=== PATIENT | female | born 1950 | race Caucasian/White ===

== ENCOUNTER 2018-01-22 13:45 | Emergency (ER) | payer OTHER, BC ==
[~2018-01-22] VITALS: Ht 167.6 cm; Wt 81.7 kg
[~2018-01-22 13:45] MED LIST: ALEVE220 MG PO; ALORA1 EAC1; AMBIEN 5 MG TABL5 M1 PO; ESTRADIOL 1 MG T1 M1 PO; FLEXERIL PO; FLORASTOR250 MG PO; MIRALAX17 GM PO; NAPROSYN500 MG PO; NORCO 5-325 TA1 EACH PO; OXYCODONE HCL 55 MG PO; PERCOCET 7.5-31 EACH PO; PERCOCET PO; ROXICODONE5 M2 PO; TOPROL XL25 MG PO; TYLENOL325 MG PO; VERTICALM25 MG PO
[2018-01-22] MEDS ORDERED: FLEXERIL PO (15:10)
== END 2018-01-22 15:27 | disposition home or self-care (01) ==
LOC: ER 13:45
DX: S16.1XXA Strain of muscle, fascia and tendon at neck level, initial encounter (principal); S39.012A Strain of muscle, fascia and tendon of lower back, initial encounter; Z90.710 Acquired absence of both cervix and uterus; Z90.49 Acquired absence of other specified parts of digestive tract; Z87.891 Personal history of nicotine dependence; V89.2XXA Person injured in unspecified motor-vehicle accident, traffic, initial encounter; Y93.89 Activity, other specified; Y92.89 Other specified places as the place of occurrence of the external cause; Y99.8 Other external cause status

== ENCOUNTER 2018-04-09 12:58 | Emergency (ER) | payer OTHER, BC ==
[~2018-04-09] VITALS: Ht 167.6 cm; Wt 81.7 kg
--- NOTE | ~2018-04-09 | EKG ---
[address] [address] ELECTROCARDIOGRAM REPORT Name: CEM EDGAR [id number] Admission: 04/09/18 Attend Phys: Discharge: 04/09/18 Date of : 46 Report #: [id number] THIS REPORT FOR: //name// [facility] ED Test Date: 2018-04-09 Test Time: 12:58:05 Pat Name: CEM EDGAR Department: Room: Gender: F Cafeteria Monitor: Doris DEAN : 1950 Requested By: Kiara Nation Order Number: [id number] MD: Archie Richards Measurements Intervals [place] Rate: 166 P: 0 VT: 212 QRS: 49 QRSD: 90 T: -73 QT: 273 QTc: 454 Interpretive Statements Supraventricular tachycardia Repolarization abnormality, prob rate related Baseline wander in lead(s) II,III,aVR,aVL,aVF,V2,V3,V4,V5,V6 Compared to ECG 12/31/2014 00:57:36 Early repolarization now present Sinus rhythm no longer present Myocardial infarct finding no longer present Electronically Signed On 04-10-2018 21:18:15 CDT by Archie Richards [email or web address] <ELECTRONICALLY SIGNED> By: Archie Richards MD 04/10/18 2118 1258 Archie Richards MD /EPI
[2018-04-09 13:20] LABS: ABSOLUTE NEUTROPHILS 6.5 thou/uL (1.4-8.2); BASOPHILS 0.7 % (0.0-2.0); EOSINOPHILS 2.6 % (0.0-3.0); HEMATOCRIT 44.2 % (37.0-47.0); HEMOGLOBIN 14.8 gm/dL (12.0-15.0); LYMPHOCYTES 26.2 % (24.0-44.0); MCH 29.5 pg (26.0-34.0); MCHC 33.5 g/dL (28.0-37.0); MCV 87.8 fL (80.0-100.0); MONOCYTES 8.1 % (1.0-8.0); PLATELET COUNT 252 thou/uL (150-400); POLYS 62.4 % (36.0-66.0); RBC 5.03 mil/uL (4.20-5.00); RDW 13.7 % (10.5-14.5); WBC 10.4 thou/uL (4.0-11.0)
[2018-04-09] MEDS ORDERED: TOPROL XL50 MG PO (13:21)
[2018-04-09 13:23] LABS: CALCIUM 9.2 mg/dL (8.5-10.1); CREATININE 1.1 mg/dL (0.6-1.0); POTASSIUM 3.6 mmol/L (3.5-5.1)
== END 2018-04-09 13:56 | disposition home or self-care (01) ==
LOC: ER 12:58
PROVIDERS: Emergency Medicine
DX: I47.1 Supraventricular tachycardia (principal); M19.90 Unspecified osteoarthritis, unspecified site; Z90.49 Acquired absence of other specified parts of digestive tract; Z90.710 Acquired absence of both cervix and uterus; Z88.8 Allergy status to other drugs, medicaments and biological substances

== ENCOUNTER → 2019-09-22 | Outpatient (CLI) | payer OTHER, BC ==
[~2019-09-22] VITALS: Ht 167.6 cm; Wt 81.6 kg
[~2019-09-22] MED LIST changes: +TOPROL XL50 MG PO
[2019-09-22 07:33] LABS: HEMATOCRIT 45.5 % (37.0-47.0); MCH 29.5 pg (26.0-34.0); MCV 89.5 fL (80.0-100.0); RBC 5.08 mil/uL (4.20-5.00); WBC 8.6 thou/uL (4.0-11.0)
[2019-09-22 07:34] VITALS: BP 151/67
[2019-09-22 07:41] LABS: CALCIUM 10.2 mg/dL (8.5-10.1); CREATININE 0.9 mg/dL (0.6-1.0); POTASSIUM 4.3 mmol/L (3.5-5.1)
[2019-09-22 09:48] VITALS: BP 145/88
[2019-09-22 10:21] VITALS: BP 167/88
== END | disposition home or self-care (01) ==
LOC: CATH 08-18 15:27
PROVIDERS: Nuclear Medicine Nuclear Cardiology
DX: I87.2 Venous insufficiency (chronic) (peripheral) (principal); I87.1 Compression of vein; I87.323 Chronic venous hypertension (idiopathic) with inflammation of bilateral lower extremity; M79.89 Other specified soft tissue disorders; I10 Essential (primary) hypertension; M19.90 Unspecified osteoarthritis, unspecified site; Z90.49 Acquired absence of other specified parts of digestive tract; Z90.710 Acquired absence of both cervix and uterus; Z98.890 Other specified postprocedural states; Z79.899 Other long term (current) drug therapy; Z87.891 Personal history of nicotine dependence; Z96.652 Presence of left artificial knee joint

== ENCOUNTER → 2019-11-03 | Outpatient (CLI) | payer OTHER, BC ==
[~2019-11-03] VITALS: Ht 167.6 cm; Wt 81.6 kg
[2019-11-03 07:40] VITALS: BP 147/77
== END | disposition home or self-care (01) ==
LOC: CATH 07:13
DX: I87.2 Venous insufficiency (chronic) (peripheral) (principal); I87.322 Chronic venous hypertension (idiopathic) with inflammation of left lower extremity; M79.605 Pain in left leg; R22.42 Localized swelling, mass and lump, left lower limb; I10 Essential (primary) hypertension; I73.9 Peripheral vascular disease, unspecified; M19.90 Unspecified osteoarthritis, unspecified site; Z98.890 Other specified postprocedural states; Z79.899 Other long term (current) drug therapy; Z87.891 Personal history of nicotine dependence; Z90.49 Acquired absence of other specified parts of digestive tract; Z90.710 Acquired absence of both cervix and uterus; Z82.49 Family history of ischemic heart disease and other diseases of the circulatory system; Z96.652 Presence of left artificial knee joint

== ENCOUNTER → 2020-08-21 | Outpatient (CLI) | payer OTHER, BC ==
[~2020-08-21] MED LIST changes: +LORCET 5-325 M1 EACH PO; +MULTI VITAMIN1 EACH PO; +VITAMIN D325 MC2 PO
== END ==
LOC: LAB 07:43
PROVIDERS: ATTEND Orthopaedic Surgery
DX: Z01.812 Encounter for preprocedural laboratory examination (principal); Z20.828 Contact with and (suspected) exposure to other viral communicable diseases

== ENCOUNTER 2020-08-26 11:11 | Inpatient (IN) | payer OTHER, BC ==
[2020-08-09 09:23] LABS: HEMATOCRIT 43.8 % (37.0-47.0); HEMOGLOBIN 14.2 gm/dL (12.0-15.0); MCH 29.1 pg (26.0-34.0); MCHC 32.5 g/dL (28.0-37.0); MCV 89.6 fL (80.0-100.0); RBC 4.89 mil/uL (4.20-5.00); RDW 13.6 % (10.5-14.5); WBC 8.3 thou/uL (4.0-11.0)
[2020-08-09 09:32] LABS: URINE BILIRUBIN NEGATIVE (Negative); URINE BLOOD TRACE (Negative); URINE CLARITY CLEAR; URINE COLOR YELLOW; URINE GLUCOSE-RANDOM* NEGATIVE (Negative); URINE KETONES NEGATIVE (Negative); URINE LEUKOCYTES-REFLEX NEGATIVE (Negative); URINE NITRITE-REFLEX NEGATIVE (Negative); URINE PROTEIN (DIPSTICK) NEGATIVE (Negative); URINE SPECIFIC GRAVITY 1.025 (1.005-1.035); URINE UROBILINOGEN 0.2 E.U./dl (0.2-1.0)
[2020-08-09 09:34] LABS: ALBUMIN 3.8 g/dL (3.4-5.0); CALCIUM 9.3 mg/dL (8.5-10.1); CREATININE 0.8 mg/dL (0.6-1.0); POTASSIUM 4.1 mmol/L (3.5-5.1)
--- NOTE | 2020-08-09 12:35 | EKG ---
[facility] [place] [address] ELECTROCARDIOGRAM REPORT Name: TALACEM POLK Room #: PRE [facility] [place].#: [id number] Admission: Attend Phys: Shaun Ahumada MD Discharge: Date of : 46 Report #: [id number] THIS REPORT FOR: cc: FAM - Family physician unknown FAM - Family physician unknown Hector Cerrato MD [facility] ~ THIS REPORT FOR: //name// [facility] Test Date: 2020-08-09 Test Time: 09:12:19 Pat Name: CEM EDGAR Department: Room: Gender: F Surveyor'S Assistant: CAROLINE MERRITT : 1950 Requested By: Shaun Ahumada Order Number: [id number] MD: Hector Cerrato Measurements Intervals [place] Rate: 62 P: 7 NV: 185 QRS: 7 QRSD: 95 T: 20 QT: 406 QTc: 413 Interpretive Statements Sinus rhythm Poor R wave progression Compared to ECG 06/24/2018 07:05:54 No significant changes found Electronically Signed On 08-09-2020 12:35:24 CDT by Hector Cerrato [email or web address] <ELECTRONICALLY SIGNED> By: Hector Cerrato MD, FAC 08/09/20 1235 1 09 Hector Cerrato MD, [facility] /EPI
[~2020-08-26] VITALS: Ht 167.6 cm; Wt 81.6 kg
[2020-08-26] VITALS (7 sets, daily range): BP systolic 121–158; BP diastolic 71–84
--- NOTE | ~2020-08-26 | O ---
[facility] [place] [address] OPERATIVE REPORT Name: CEM EDGAR Room #: 444-P [facility] M..#: [id number] Admission: 08/26/20 Attend Phys: Shaun Ahumada MD Discharge: Date of : 46 Report #: [id number] THIS REPORT FOR: cc: DHEERAJ - Family physician unknown FAM - Family physician unknown Shaun Ahumada MD ~ CC: DHEERAJ unknown Shaun Ahumada DATE OF SERVICE: 08/26/2020 PREOPERATIVE DIAGNOSIS: Left knee osteoarthritis. POSTOPERATIVE DIAGNOSIS: Left knee osteoarthritis. PROCEDURE: Left total knee arthroplasty using Navio robotic laboratory chemical assistant. SURGEON: Shaun Ahumada MD. SPACE SYSTEMS OPERATIONS CRAFTSMAN: Vane Turner PA-C. INDICATIONS FOR SPACE SYSTEMS OPERATIONS CRAFTSMAN: Throughout the case, extensive retraction and manipulation of the knee was required. This was afforded to me by my laboratory chemical assistant. ANESTHESIA: LMA with an adductor canal block. IMPLANTS: Doty and Nephew size 5 Journey II BCS cobalt chrome femur, a size 4 tibia, size 11 polyethylene and a size 32 patella. TOURNIQUET TIME: 54 minutes. ESTIMATED BLOOD LOSS: 25 mL COMPLICATIONS: None. SPECIMENS: None. CONDITION UPON LEAVING THE OPERATING ROOM: Stable. INDICATIONS FOR PROCEDURE: The patient is a 70-year-old female with left knee osteoarthritis. She had failed conservative measures for this and after discussion with her, she elected for left total knee arthroplasty. DESCRIPTION OF PROCEDURE: Risks, benefits, alternatives, complications were discussed in detail with the patient including but not limited to risk of anesthesia, risk of damage to nerves, arteries, blood vessels, risk for [facility] [address] [place] [address] OPERATIVE REPORT Name: CEM EDGAR FELICITAS Room #: 444-P REG [facility] M.R.#: [id number] Admission: 08/26/20 Attend Phys: Shaun Ahumada MD Discharge: Date of : 46 Report #: [id number] infection, bleeding, risk for continued knee pain, need for reoperation. Informed consent was obtained from the patient. Left knee was appropriately marked in the preoperative holding area. IV Ancef was given for preoperative antibiotics. She was brought to the operating room and placed in supine position on operating room table. LMA anesthesia was induced without complication. Tourniquet was placed on the left thigh. Left lower extremity was prepped and draped in normal sterile fashion. Timeout was performed properly identifying the patient and procedure as well as the instrumentation and implants. All in the operating room were in agreement. Left lower extremity was exsanguinated, tourniquet was inflated. Tourniquet time was 54 minutes. Standard midline approach to the knee was made with 10 blade through the skin. Dissection was taken down sharply to the fascia. Deep flaps were developed medially and laterally. Fresh 10 blade was used to make a medial parapatellar arthrotomy and the knee was inspected. There was severe tricompartmental osteoarthritis. ACL and PCL were removed sharply. Reference pins were placed in the femur and the tibia. The knee was then digitally mapped using the Friendster robotic system. Intraoperative plan was made and we sized the size 5 femur, a size 4 tibia and 10 spacer. After acceptance of the intraoperative plan, the distal femoral cut was made with a Navio bur. Distal femoral cutting block was pinned in place and distal femoral cuts were made. Attention was turned to the tibia. Remainder of the menisci removed with Bovie cautery. Tibial resection guide was pinned in place using the Navio for placement and tibial resection was made. After this, flexion and extension gaps were checked and found to have good balance medially and laterally in flexion and extension. Tibia was sized, found to be a size 4. Size 4 tibial trial was placed, pinned and punched. A size 5 femoral trial was placed and box cut was made. This was then trialed with a size 10 and then a size 11 polyethylene and size 11 polyethylene demonstrated 1 millimeter of laxity medially and laterally throughout range of motion of the knee. A 9 mm of bone was resected from the posterior surface of the patella and a size 32 patellar trial button was placed. Knee was taken through range of motion, found to be stable, found to have good patellar tracking. Trial components were removed. Bony ends were thoroughly irrigated with normal saline. Final size 4 tibia, size 5 Journey II BCS cobalt chrome femur and a size 32 patella were cemented in place using standard cementation techniques. While the cement cured, a periarticular injection consisting of morphine, ropivacaine, epinephrine and Toradol were placed around the knee joint capsule. After the cement cured, tourniquet was deflated. Hemostasis was obtained with Bovie cautery. Final size 11 polyethylene was placed. A gram of vancomycin was placed deep in the joint. Fascia was closed with 0 Vicryl. Skin was closed with 2-0 Vicryl, 3-0 Monocryl. Dermabond and a EMMY dressing was applied. The patient tolerated this procedure well and went to the recovery room under care of anesthesia postoperatively. By: 0702 [id number] Shaun Ahumada MD /lisa
--- NOTE | 2020-08-26 18:40 | NUR ---
ASSUMED CARE AT 1635. PT IS A&O X4. IV IS INTACT W/O REDNESS OR SWELLING. POLAR CARE ARE INTACT. TEDS/SCD HOSE ARE PLACE. PT IS CURRENTLY ON 2 LITERS ON OXYGEN. PT COMPLAINED OF PAIN AND WAS GIVEN HYDROCODONE. PT COMPLAINS OF LEFT FOOT TENDERNESS AND STIFFNESS. CALL LIGHT WITHIN REACH. PT IS TOLERATING REGULAR DIET WELL.
[2020-08-27 04:11] VITALS: BP 116/95
--- NOTE | 2020-08-27 04:34 | NUR ---
ASSESSMENT COMPLETED. PT DENIES PAIN. LEFT KNEE WITH EMMY DRSG AND POLAR IN PLACE. PT BEEN USING BEDPAN THRO THE NOC BECAUSE SHE REPORTS THAT THE BACK OF THE LEFT KNEE IS STILL VERY NUMB. SHE IS VOIDING WELL. GOOD CSM TO LEFT FOOT.AFEBRILE. NO FURTHER CONCERNS.
[2020-08-27 05:57] LABS: HEMATOCRIT 32.2 % (37.0-47.0); HEMOGLOBIN 10.6 gm/dL (12.0-15.0); MCH 29.9 pg (26.0-34.0); MCHC 32.8 g/dL (28.0-37.0); RBC 3.54 mil/uL (4.20-5.00); RDW 13.4 % (10.5-14.5); WBC 17.1 thou/uL (4.0-11.0)
[2020-08-27 07:25] VITALS: BP 91/43
--- NOTE | 2020-08-27 11:39 | NUR ---
Assumed care of pt at 0700. Pt a&ox4. Pain controlled with prn pain meds. Dressing c/d/i. Polar pack in place. TACOS hose and SCDs in place. Pt worked with physical therapy this am. Will discharged when cleared by pt. Call light within reach. Will continue to monitor.
[2020-08-27 15:30] VITALS: BP 93/44
--- NOTE | 2020-08-27 16:26 | NUR ---
Pt staying overnight per PT and unit staff. She will need a FWW at dc. [employer]il[employer] spoke with pt at bedside. She is anticipating dc home tomorrow to outpt therapy and she does need a FWW. She has good support at home. She denies preference for [employer]. Referral called and script faxed to Sammy. Kushal from [facility] to kevin a FWW to pt's room in the morning. No other cm interventions indicated. Case closed.
[2020-08-27 16:30] VITALS: BP 91/43
[2020-08-27 16:50] VITALS: BP 120/62
[2020-08-27 21:20] VITALS: BP 115/46
--- NOTE | 2020-08-28 03:36 | NUR ---
ASSUMED PT CARE AT 1900.PT ALER AND COPERATIVE WITH CARE.UP WITH ASSIST X1 TO THE BSC.PT C/O PAIN ON HER L HIP,MANAGED WITH MED.WT BEARING ANU.DRSG TO HER L KNEE DRY AND INTACT WITH SCD/TACOS HOSE AND POLAR ACK IN PLACE.PT SLEEPING ON HER BED AT HIS TIME.CALL LIGHT WITHIN REACH.
[2020-08-28 05:45] VITALS: BP 107/48
[2020-08-28 06:13] LABS: HEMATOCRIT 28.9 % (37.0-47.0); HEMOGLOBIN 9.7 gm/dL (12.0-15.0); MCH 30.4 pg (26.0-34.0); MCHC 33.5 g/dL (28.0-37.0); MCV 90.7 fL (80.0-100.0); RBC 3.19 mil/uL (4.20-5.00); RDW 13.7 % (10.5-14.5); WBC 9.7 thou/uL (4.0-11.0)
[2020-08-28 07:24] VITALS: BP 120/58
--- NOTE | 2020-08-28 14:57 | NUR ---
ON-GOING ASSESSMENT: CM REVIEWED CHART. PT IS STILL STRUGGLING WITH PT AND PAIN CONTROL. PT IS TO WORK WITH PHYSICAL THERAPY THIS AFTERNOON AND POSSIBLE DISCHARGE HOME LATER TODAY OR TOMORROW. MU DELIVERED PATIENTS WALKER. CM WILL CONTINUE TO FOLLOW.
[2020-08-28 15:44] VITALS: BP 152/74
[2020-08-28 19:31] VITALS: BP 162/68
[2020-08-28 19:38] VITALS: BP 162/68
[2020-08-29 03:48] VITALS: BP 154/67
--- NOTE | 2020-08-29 04:07 | NUR ---
PT AOX4. PT REPORTS 3-5/10 PAIN IN LEFT HIP. PT DENIES SOB WHILE IN ROOM AIR. PT RECEIVING SCHEDULED PO MORPHINE, PRN PO NORCO Q4HR WITH PRN PO APAP Q4HR AVAIALABLE. PT AMBULATING WITH X1 ASSIST, GAIT BELT, AND WALKER TO RESTROOM. PT WITH FIRM, NONPITTING EDEMA TO RLE, +1 FIRM EDEMA TO LLE. PT REPORTS NUMBNESS IN LLE, SPASMS IN BACK, AND WEAKNESS IN LLE. CAPILLARY REFILL REMAINS INTACT, LESS THAN 3SEC IN ALL EXTREMITIES, +2 PULSES IN ALL EXTREMITIES. PT TOLERATING PO INTAKE OF FLUIDS AND REGULAR DIET WITHOUT ISSUE. FREQUENT REPOSITIONING ENCOURAGED. PT NOTED TO SHIFT INDEPENDENTLY WHILE IN BED. PT ENCOURAGED TO NOTIFY STAFF FOR ALL NEEDS, CALL LIGHT WITHIN REACH, BED ALARM ON, BED IN LOWEST POSITION, FREQUENT MONITORING WILL CONTINUE.
[2020-08-29 06:02] LABS: HEMATOCRIT 30.7 % (37.0-47.0); HEMOGLOBIN 10.2 gm/dL (12.0-15.0); MCH 29.9 pg (26.0-34.0); MCHC 33.1 g/dL (28.0-37.0); MCV 90.3 fL (80.0-100.0); RBC 3.39 mil/uL (4.20-5.00); RDW 13.3 % (10.5-14.5)
[2020-08-29 09:18] VITALS: BP 124/57
--- NOTE | 2020-08-29 13:15 | NUR ---
ON-GOING ASSESSMENT: CM REVIEWED CHART. PT IS PROGRESSING TOWARDS DISCHARGE GOALS. PLANS ARE FOR PT TO POSSIBLY DISCHARGE TOMORROW. PT HAS WALKER IN HER ROOM. CM WILL CONTINUE TO FOLLOW.
--- NOTE | 2020-08-29 18:39 | NUR ---
PT IS AOX4, VSS, PAIN CONTROLLED IN L HIP WITH ORAL PAIN ANALGESIC. PT IS ACTIVELY WORKING WITH PT/OT. GOT UP TO CHAIR TODAY WITH GAIT BELT, WALKER AND 1 ASSIST. PT DENIES N/V, TOLERATING DIET WELL. PT CALLS JEAN, WILL CONTINUE TO MONITOR.
[2020-08-29 19:22] VITALS: BP 129/65
[2020-08-29 21:27] VITALS: BP 129/65
[2020-08-30 04:31] VITALS: BP 111/57
--- NOTE | 2020-08-30 05:43 | NUR ---
PT AOX4. PT REPORTS 5/10 PAIN IN LEFT HIP. PT DENIES SOB WHILE ON ROOM AIR. PT DENIES NUMBNESS, TINGLING,AND SPASMS. PT RECEIVING SCHEDULED PO MORPHINE BID, PRN PO NORCO Q4HR WITH PRN PO APAP Q3HR AND PRN PO FLEXERIL Q8HR AVAILABLE. PT TOLERATING PO INTAKE OF FLUIDS AND REGULAR DIET WITHOUT ISSUE. PT WITHOUT NAUSEA. PT AMBULATING WITH STANDBY ASSIST, WALKER, AND GAIT BELT TO BATHROOM. PT NOTED TO HAVE FIRM, NONPITTING EDEMA TO BLE. FREQUENT REPOSITIONING ENCOURAGED. PT NOTED TO SHIFT INDEPENDENTLY WHILE IN BED. PT ENCOURAGED TO NOTIFY STAFF FOR ALL NEEDS, CALL LIGHT WITHIN REACH, BED ALARM ON, BED IN LOWEST POSITION, FREQUENT MONITORING WILL CONTINUE.
[2020-08-30 07:30] VITALS: BP 139/65
[2020-08-30 12:17] VITALS: BP 91/43
--- NOTE | 2020-08-30 12:34 | NUR ---
Assumed care of pt. at 0700. Pt. was calm and cooperative. Pt. was excited to discharge today. Pt. passed with PT/OT and was cleared for discharge. Pt. received discharge education and left unit with all belongings.
--- NOTE | 2020-08-30 13:09 | NUR ---
ON-GOING ASSESSMENT: PT HAS ORDERS TO DISCHARGE HOME NO NEEDS TODAY. PT HAS WALKER IN ROOM FROM [facility]. PT HAS NO FURTHER NEEDS FROM .
== END 2020-08-30 12:30 | disposition home or self-care (01) | DRG 470 ==
LOC: OR 11:11 → TBA 11:17 → OR 13:09 → 4S 16:35 → OR 08-28 17:47 → 4S 08-28 17:48
PROVIDERS: ADMIT Orthopaedic Surgery; ATTEND Orthopaedic Surgery
PROC: 8E0Y0CZ Robotic Assisted Procedure of Lower Extremity, Open Approach (ICD-10-PCS; principal; 2020-08-28)
PROC: 0SRD0J9 Replacement of Left Knee Joint with Synthetic Substitute, Cemented, Open Approach (ICD-10-PCS; principal; 2020-08-28)
PROC: 3E0T3BZ Introduction of Anesthetic Agent into Peripheral Nerves and Plexi, Percutaneous Approach (ICD-10-PCS; principal; 2020-08-28)
DX: M17.12 Unilateral primary osteoarthritis, left knee (principal); I10 Essential (primary) hypertension; I73.9 Peripheral vascular disease, unspecified
CPT/HCPCS: 10102; 50010; 50101; 50415; 50954; 51130; 51225; 51320; 53000; 53078; 54118; 56527; 56528; 57095; 57103; 57110; 57127; 57180; 58239; 62110; 62900; 64043; 65060; 70005

== ENCOUNTER → 2021-02-21 | Outpatient (CLI) | payer OTHER, BC ==
[~2021-02-21] MED LIST changes: +HYDROCODON-ACE1 EAC7 PO; -LORCET 5-325 M1 EACH PO
[2021-02-21 09:51] LABS: HEMATOCRIT 42.7 % (37.0-47.0); HEMOGLOBIN 14.5 gm/dL (12.0-15.0); MCHC 33.9 g/dL (28.0-37.0); MCV 88.6 fL (80.0-100.0); RBC 4.82 mil/uL (4.20-5.00); RDW 14.3 % (10.5-14.5); WBC 7.6 thou/uL (4.0-11.0)
[2021-02-21 09:54] LABS: URINE BILIRUBIN NEGATIVE (Negative); URINE BLOOD NEGATIVE (Negative); URINE CLARITY CLEAR; URINE COLOR YELLOW; URINE GLUCOSE-RANDOM* NEGATIVE (Negative); URINE KETONES NEGATIVE (Negative); URINE LEUKOCYTES-REFLEX NEGATIVE (Negative); URINE NITRITE-REFLEX NEGATIVE (Negative); URINE PROTEIN (DIPSTICK) NEGATIVE (Negative); URINE UROBILINOGEN 0.2 E.U./dl (0.2-1.0)
[2021-02-21 09:59] LABS: ALBUMIN 3.9 g/dL (3.4-5.0); CALCIUM 9.4 mg/dL (8.5-10.1); CREATININE 0.9 mg/dL (0.6-1.0); POTASSIUM 4.4 mmol/L (3.5-5.1)
[2021-02-21 10:05] LABS: INR 0.95; PROTIME 10.4 Seconds (10.5-12.1)
== END ==
LOC: LAB 08:59
PROVIDERS: Orthopaedic Surgery; ATTEND Student in an Organized Health Care Education/Training Program
DX: Z01.812 Encounter for preprocedural laboratory examination (principal); Z20.822 Contact with and (suspected) exposure to COVID-19

== ENCOUNTER 2021-02-26 10:32 | Observation (INO) | payer OTHER, BC ==
[2021-02-26] VITALS (9 sets, daily range): BP systolic 114–154; BP diastolic 63–78
[~2021-02-26] VITALS: Ht 167.6 cm; Wt 81.2 kg
--- NOTE | 2021-02-26 20:08 | NUR ---
Admitted from OR at 1600; s/p RT Total knee; transferred to bed safely. Admission assessment, history and education done; admission forms signed from OR. On MS, not on telemetry; no complains and signs of chest pain, crushing sensation and heaviness. Assisted in ADLs. On regular diet- tolerating well; no nausea, no vomiting and no abdominal pain noted. With SL at L FA- IVF given as prescribed. Post op site C/D/I; EMMY dressing, polar pack, SCDs and TACOS hose in place; no bleeding and drainage noted; able to feel tactile stimulation and sensation, able to wiggle toes. Complained of itchiness, no redness noted; PRN Benadryl given as prescribed. No complains of pain made during assessment, but made aware re: pain medication options available. To continue monitoring patient.
--- NOTE | 2021-02-27 00:19 | NUR ---
UPON SHIFT ASSESSMENT, PT AOX4. PT DENIES PAIN AND SOB WHILE ON ROOM AIR. PT RECEIVING SCHEDULED PO MORPHINE BID WITH PRN PO NORCO Q4HR AND PRN PO APAP Q3HR AVAILABLE. PT TOLERATING PO INTAKE OF FLUIDS AND REGULAR DIET WITHOUT ISSUE. PT WITHOUT NAUSEA OR EMESIS. PT RESTING IN BED THROUGHOUT SHIFT, FREQUENT REPOSITIONING ENCOURAGED, PT NOTED TO SHIFT INDEPENDENTLY. SENSATION INTACT, CAPILLARY REFILL LESS THAN 3SEC, PERIPHERAL PULSES PALPABLE IN ALL EXTREMITIES. EMMY DRESSING DRY AND INTACT, POLAR PACK IN PLACE, SCDS AND TACOS HOSES ON. PT VOIDING PER BEDPAN, REFUSING TO AMBULATE TO BEDSIDE COMMODE AT THIS TIME. PT ENCOURAGED TO NOTIFY STAFF FOR ALL NEEDS, CALL LIGHT WITHIN REACH, BED ALARM ON, BED LOCKED IN LOWEST POSITION, FREQUENT MONITORING WILL CONTINUE.
[2021-02-27 03:44] VITALS: BP 103/59
[2021-02-27 03:59] VITALS: BP 103/59
[2021-02-27 05:26] LABS: HEMATOCRIT 34.1 % (37.0-47.0); HEMOGLOBIN 11.3 gm/dL (12.0-15.0); MCH 29.7 pg (26.0-34.0); MCHC 33.2 g/dL (28.0-37.0); MCV 89.6 fL (80.0-100.0); RBC 3.81 mil/uL (4.20-5.00); RDW 14.2 % (10.5-14.5); WBC 16.4 thou/uL (4.0-11.0)
[2021-02-27 08:21] VITALS: BP 112/53
--- NOTE | 2021-02-27 09:07 | NUR ---
ASSESSMENT: CM REVIEWED CHART AND MET WITH PATIENT. PT IS S/P TOTAL KNEE REPLACEMENT. PT REPORTS THAT SHE LIVES AT HOME WITH HER IN A HOUSE. PT REPORTS ONE STEP TO ENTER THE HOME AND HAS ABOUT 7 STEPS WITH HANDRAIL UP AND 7 STEPS WITH HANDRAIL DOWN TO THE BOTTOM LEVEL. PT REPORTS THAT SHE HAS A FWW AT HOME. PT REPORTS SHE HAS OUTPATIENT THERAPY ARRANGED HERE AT [facility] TO BEGIN WEDNESDAY. CM DISCUSSED ROLE. PT DOES NOT ANTICIPATE HAVING ANY NEEDS FROM CM. AWAITING TO SEE HOW PATIENT DOES WITH PHYSICAL THERAPY. PT IS HOPEFUL TO DISCHARGE HOME TODAY. CM WILL CONTINUE TO FOLLOW.
--- NOTE | 2021-02-27 09:23 | NUR ---
ASSUMED PT CARE THIS AM. PT IS ALERT & ORIENTED X4. PT HAS NO IV SITE. PT HAS R TOTAL KNEE REPLACEMENT YESTERDAY. PT HAS R KNEE EMMY DRESSING, POLAR CARE, BILATERAL TACOS HOSES KNEE HIGH AND SCD. PT ON ROOM AIR. PT DENIES PAIN, NAUSEA AND VOMITING THIS AM. PT USES BEDPAN AND BEEN VOIDING WELL. PT WILL BE WORKING WITH PATIENT TODAY. PT TOLERATED MEDICATION AND DIET THIS AM. PT ON THE BED, BED ON THE LOWEST POSITION, SIDE RAILS UP, CALL LIGHT WITHIN REACH. WILL CONTINUE TO MONITOR PT. FOLLOW POC.
[2021-02-27 16:23] VITALS: BP 106/59
[2021-02-27 19:07] VITALS: BP 112/53
--- NOTE | 2021-02-28 03:32 | NUR ---
PT WAS LYING ON HER BED WITH HER EYES CLOSED AT SHIFT CHANGE.DRGS TO HER R KNEE DRY AND INTACT.POLAR PACK/SCD/TACOS HOSE IN PLACE.PT VOIDING PER BEDPAN,WAS ENCOURAGED TO GET UP TO THE BSC.NO BM NOTED SO FAR.PT LOOKING FORWARD TO CONT WITH THERAPY THEN DC LATER IN THE DAY.CALLL LIGHT WITHIN REACH.
[2021-02-28 04:17] VITALS: BP 120/68
[2021-02-28 05:45] LABS: HEMATOCRIT 31.4 % (37.0-47.0); HEMOGLOBIN 10.4 gm/dL (12.0-15.0); MCHC 33.1 g/dL (28.0-37.0); MCV 90.8 fL (80.0-100.0); RBC 3.46 mil/uL (4.20-5.00); RDW 14.4 % (10.5-14.5); WBC 10.1 thou/uL (4.0-11.0)
[2021-02-28 08:42] VITALS: BP 133/66
[2021-02-28 11:06] VITALS: BP 133/66
--- NOTE | 2021-02-28 11:50 | NUR ---
Assumed pt care at 7am.Pt in bed resting and waiting for breakfast and am meds before working with the therapy.Assessment completed.Am meds given and well tolerated.Pt c/o rt knee pain rated 5/10.Alma given with partial relief. relief.Yue Zafar here,dc order noted.Pt will be dc home after lunch.Pt up in chair at present resting.Will continue to monitor.
--- NOTE | 2021-02-28 13:58 | NUR ---
ON-GOING ASSESSMENT: CM REVIEWED CHART. PT CONTINUES TO WORK WITH THERAPY AND PER PHYSICAL THERAPY PT IS SAFE FOR HOME. PT HAS NEEDED EQUIPMENT AT HOME. PT WILL HAVE NO NEEDS FROM CM. LIKELY DISCHARGE HOME TODAY. PT ALREADY HAS OUTPATIENT THERAPY ARRANGED.
--- NOTE | 2021-03-01 08:25 | O ---
[facility] [place] [address] OPERATIVE REPORT Name: CEM EDGAR FELICITAS Room #: 439-P [facility] Cyrus Claros#: [id number] Admission: 02/26/21 Attend Phys: Shaun Ahumada MD Discharge: 02/28/21 Date of : 46 Report #: [id number] THIS REPORT FOR: cc: Hafsa Mcdonald MD, Genelle J. MD Abraham,Shaun Shepard MD ~ DOC #: [id number] Shaun Ahumada MD DATE OF SERVICE: 02/26/2021 PREOPERATIVE DIAGNOSIS: Right knee osteoarthritis. POSTOPERATIVE DIAGNOSIS: Right knee osteoarthritis. PROCEDURE: Right total knee arthroplasty using Navio robotic assistance. SURGEON: Shaun Ahumada M.D. DEPARTMENT STORE MANAGER: Vane Turner PA-C. INDICATION FOR DEPARTMENT STORE MANAGER: Extensive retraction and manipulation of the knee was required. This was afforded to me by my funeral home assistant. ANESTHESIA: LMA with adductor canal block. IMPLANTS: Doty and Nephew size 5 Journey II BCS cobalt chrome femur, size 4 tibia, size 13 constrained polyethylene and size 32 patella. TOURNIQUET TIME: 51 minutes. ESTIMATED BLOOD LOSS: 25 mL. COMPLICATIONS: None. SPECIMENS: None. CONDITION UPON LEAVING THE OPERATING ROOM: Stable. INDICATIONS FOR PROCEDURE: The patient is a 70-year-old female with severe right knee osteoarthritis. She had failed conservative measures for this and after discussion with her, she elected for right total knee arthroplasty. DESCRIPTION OF PROCEDURE: Risks, benefits, alternatives, complications were discussed in detail with the patient including, but not limited to risk of anesthesia, risk of damage to nerves, arteries, blood vessels, risk for infection, bleeding, risk for continued knee pain, need for reoperation. [address] [address] OPERATIVE REPORT Name: TALACEM FELICITAS Room #: 439-P [facility] Claros#: [id number] Admission: 02/26/21 Attend Phys: Shaun Ahumada MD Discharge: 02/28/21 Date of : 46 Report #: [id number] Informed consent was obtained from the patient. The right knee was appropriately marked in the preoperative holding area. IV Ancef was given for preoperative antibiotics. She was brought to the operating room and placed in the supine position on the operating room table. LMA anesthesia was induced without complication. Tourniquet was placed on the right thigh. Right lower extremity was prepped and draped in normal sterile fashion. Timeout was performed properly identifying the patient, procedure as well as the instrumentation and implants. All in the operating room in agreement. Right lower extremity was exsanguinated and tourniquet inflated. Tourniquet time was 51 minutes. Standard midline approach to the knee was made with 10 blade through the skin. Dissection was taken down sharply to the fascia and deep flaps were developed medially and laterally. A fresh 10 blade was used to make a medial parapatellar arthrotomy and the knee was inspected. There was severe medial compartment osteoarthritis with moderate patellofemoral and moderate compartment osteoarthritis. ACL and PCL were removed sharply. Reference pins were placed in the femur and the tibia. The knee was then digitally mapped using the [employer] robotic system. Intraoperative plan was made. We sized the size 5 femur, size 4 tibia and a 10 spacer. After acceptance of the intraoperative plan, distal femoral cut was made with Navio bur. Distal femoral cutting block was pinned in place and chamfer cuts were made. Attention was then turned to the tibia. Remainder of the menisci removed with Bovie cautery. Tibial resection guide was pinned in place and tibial resection was made with oscillating saw. The medial osteophyte was removed from the proximal tibia and flexion and extension gaps were checked and found to have good balance in flexion and extension both medially and laterally. Tibia was sized, found to be a size 4. Size 4 tibial trial was placed, pinned and punched. Size 5 femoral trial was placed and the box cut was made. This was then trialed with a 10 up to a size ____ size 13 polyethylene ____ 1-2 mm laxity medially throughout range of motion of the knee in deep flexion that demonstrates up to 3-4 mm of laxity laterally and it was felt we can make up for this with a constrained implant, 9 mm of bone was resected from the posterior surface of the patella and a size 32 patellar trial button was placed. Knee was taken through range of motion, found to be stable, found to have good patellar tracking. Trial components were removed. Bone ends were thoroughly irrigated with normal saline. A final size 4, tibia size 5 Journey II BCS cobalt chrome femur and a size 32 patella were cemented in place using standard cementation techniques. While the cement cured, a periarticular injection consisting of morphine, ropivacaine, epinephrine, Toradol was placed around the knee joint capsule. After the cement cured, tourniquet was deflated. Hemostasis was obtained with Bovie cautery. A final size 13 constrained polyethylene was placed. A gram of vancomycin was placed deep in the joint. The fascia was closed with 0 Vicryl. Skin was closed with 2-0 Vicryl, 3-0 Monocryl. Dermabond and a EMMY dressing was applied. The patient tolerated this procedure well and went to recovery room under care of anesthesia postoperatively. [facility] [address] [place] [address] OPERATIVE REPORT Name: CEM EDGAR FELICITAS Room #: 439-P [facility] Cyrus MYadiraRYadira#: [id number] Admission: 02/26/21 Attend Phys: Shaun Ahumada MD Discharge: 02/28/21 Date of : 46 Report #: [id number] MD JED Garcia/LUNA/LINUS <ELECTRONICALLY SIGNED> By: Shaun Ahumada MD 03/01/21 0825 1526 1635 Shaun Ahumada MD /nt
== END 2021-02-28 12:50 | disposition home or self-care (01) ==
LOC: OR 10:32 → 4S 15:14 → OR 15:15 → 4S 15:15 → OR 17:17 → 4S 02-28 12:50
PROVIDERS: ADMIT Orthopaedic Surgery; ATTEND Orthopaedic Surgery
DX: M17.11 Unilateral primary osteoarthritis, right knee (principal); M54.9 Dorsalgia, unspecified; I47.1 Supraventricular tachycardia; M17.12 Unilateral primary osteoarthritis, left knee; Z79.899 Other long term (current) drug therapy
CPT/HCPCS: 10102; 50010; 50101; 50415; 50954; 51130; 51225; 51320; 53000; 53078; 54118; 56527; 56528; 57095; 57103; 57110; 57127; 57180; 58239; 70005

== ENCOUNTER → 2021-05-23 | Outpatient (CLI) | payer OTHER, BC | LOC: SJCVCIMAG 09:45 | PROVIDERS: ATTEND Nuclear Medicine Nuclear Cardiology | DX: I70.202 Unspecified atherosclerosis of native arteries of extremities, left leg (principal); M79.604 Pain in right leg; M79.89 Other specified soft tissue disorders ==

== ENCOUNTER → 2021-06-03 | Outpatient (CLI) | payer OTHER, BC | LOC: SJCVC 15:11 | PROVIDERS: ATTEND Internal Medicine | DX: R07.2 Precordial pain (principal); R00.2 Palpitations; I47.1 Supraventricular tachycardia; I87.2 Venous insufficiency (chronic) (peripheral); E78.5 Hyperlipidemia, unspecified; M19.90 Unspecified osteoarthritis, unspecified site; Z90.49 Acquired absence of other specified parts of digestive tract; Z90.710 Acquired absence of both cervix and uterus; Z88.8 Allergy status to other drugs, medicaments and biological substances; Z79.82 Long term (current) use of aspirin; Z79.899 Other long term (current) drug therapy; Z87.891 Personal history of nicotine dependence ==

== ENCOUNTER → 2021-06-04 | Outpatient (CLI) | payer OTHER, BC | LOC: SJCVC 16:08 | PROVIDERS: ATTEND Nuclear Medicine Nuclear Cardiology | DX: I87.2 Venous insufficiency (chronic) (peripheral) (principal); E78.5 Hyperlipidemia, unspecified; I47.1 Supraventricular tachycardia; M19.90 Unspecified osteoarthritis, unspecified site; Z90.49 Acquired absence of other specified parts of digestive tract; Z90.710 Acquired absence of both cervix and uterus; Z88.8 Allergy status to other drugs, medicaments and biological substances; Z79.82 Long term (current) use of aspirin; Z79.899 Other long term (current) drug therapy; Z87.891 Personal history of nicotine dependence ==

== ENCOUNTER 2021-06-14 16:10 | Inpatient (IN) | payer OTHER, BC ==
[~2021-06-14] VITALS: Ht 167.6 cm; Wt 80.3 kg
[2021-06-14 16:15] VITALS: BP 132/104
[2021-06-14 16:35] VITALS: BP 132/104
[2021-06-14 17:03] LABS: CALCIUM 8.9 mg/dL (8.5-10.1); POTASSIUM 4.1 mmol/L (3.5-5.1)
[2021-06-14 17:04] LABS: HEMOGLOBIN 13.6 gm/dL (12.0-15.0)
[2021-06-14 17:06] LABS: ABSOLUTE NEUTROPHILS 5.8 thou/uL (1.4-8.2); BASOPHILS 0.7 % (0.0-2.0); EOSINOPHILS 3.9 % (0.0-3.0); HEMATOCRIT 41.8 % (37.0-47.0); LYMPHOCYTES 26.8 % (24.0-44.0); MCHC 32.6 g/dL (28.0-37.0); MONOCYTES 8.7 % (1.0-8.0); PLATELET COUNT 277 thou/uL (150-400); POLYS 59.9 % (36.0-66.0); RDW 14.1 % (10.5-14.5); WBC 9.7 thou/uL (4.0-11.0)
[2021-06-14] MEDS ORDERED: AMBIEN5 MG PO (19:29)
[2021-06-14] MEDS ORDERED: ASA81BEC PO (19:39)
[2021-06-14 20:19] LABS: CHOLESTEROL 189 mg/dL (<200); HDL CHOLESTEROL 48 mg/dL (>40); LDL CHOLESTEROL 91 mg/dL (<100); TC:HDL 3.9 Ratio (Not establshd); TRIGLYCERIDE 254 mg/dL (<150); VLDL 51 mg/dL (<40)
[2021-06-14 20:21] LABS: SERUM ASSESSMENT Slight Lipemia
[2021-06-14 21:13] VITALS: BP 148/73
[2021-06-14 21:57] VITALS: BP 154/89
[2021-06-15] VITALS: BP 137/60
--- NOTE | 2021-06-15 03:32 | NUR ---
Arrived from ER around 2144. Denies any chest discomfort though she stated at times she has intermittent sharp pain from her neck down to left arm, up to elbow. Denies being short of breath. Up ad laura in room with steady gait.
[2021-06-15 04:30] VITALS: BP 108/57
[2021-06-15 07:08] LABS: GLYCOHEMOGLOBIN (HGB A1C) 5.4 % (4.8-5.6)
[2021-06-15 09:31] VITALS: BP 141/64
--- NOTE | 2021-06-15 10:19 | NUR ---
ASSUMED CARE FOR PT. RECEIVED DC ORDERS AFTER CARDIO CONSULT. PT TO FOLLOW UP WITH OUTPAITENT STRESS TEST. PT UP AD CONCEPCION. PT ALSO WENT TO CT FOR CT OF NECK BEFORE DC. EDUCATED PT ON DC INSTRUCTIONS, WITH PT GIVING TEACH INSTRUCTIONS FOR UNDERSTANDING.
--- NOTE | 2021-06-15 12:51 | EKG ---
[place] [address] [facility] [place] [address] ELECTROCARDIOGRAM REPORT Name: CEM EDGAR Room #: 207-P [facility]#: [id number] Admission: 06/14/21 Attend Phys: Viral Tobar MD Discharge: 06/15/21 Date of : 46 Report #: [id number] [facility] ED Test Date: 2021-06-14 Test Time: 16:17:22 Pat Name: CEM EDGAR Department: Room: [facility] Gender: F Custom Stock Maker: annita : 1950 Requested By: Sabrina Wallace Order Number: [id number] MD: Hector Cerrato Measurements Intervals [place] Rate: 66 P: 22 DE: 170 QRS: 6 QRSD: 101 T: 11 QT: 395 QTc: 414 Interpretive Statements Sinus rhythm Probable anterior infarct, old Baseline wander in lead(s) II Compared to ECG 08/09/2020 09:12:19 Anterior Q waves are more prominent Electronically Signed On 06-15-2021 12:51:04 CDT by Hector Cerrato [email or web address] <ELECTRONICALLY SIGNED> By: Hector Cerrato MD, [facility] 06/15/21 1251 1617 161 Hector Cerrato MD, [facility] /EPI
== END 2021-06-15 10:47 | disposition home or self-care (01) | DRG 311 ==
LOC: ER 16:10 → EROBS 19:21 → 2N 21:38
PROVIDERS: Emergency Medicine; Nurse Practitioner Family; ADMIT Hospitalist; ATTEND Hospitalist
DX: I20.0 Unstable angina (principal); I10 Essential (primary) hypertension; E78.5 Hyperlipidemia, unspecified; I73.9 Peripheral vascular disease, unspecified; Z20.822 Contact with and (suspected) exposure to COVID-19; Z96.653 Presence of artificial knee joint, bilateral; Z79.899 Other long term (current) drug therapy; Z90.710 Acquired absence of both cervix and uterus; Z90.49 Acquired absence of other specified parts of digestive tract; Z87.891 Personal history of nicotine dependence; Z72.89 Other problems related to lifestyle
CPT/HCPCS: 10081

== ENCOUNTER → 2021-06-17 | Outpatient (CLI) | payer OTHER, BC ==
[~2021-06-17] MED LIST changes: +AMBIEN5 MG PO; +ASA81BEC PO
== END ==
LOC: SJCVCIMAG 07:36
PROVIDERS: ATTEND Internal Medicine
DX: I49.3 Ventricular premature depolarization (principal); R00.0 Tachycardia, unspecified; E78.5 Hyperlipidemia, unspecified; R00.2 Palpitations; R06.00 Dyspnea, unspecified; Z87.891 Personal history of nicotine dependence